=== PATIENT | female | born 1930 | race Caucasian/White ===

== ENCOUNTER 2016-06-26 19:54 | Emergency (ER) | payer OTHER ==
[2016-06-26 20:34] LABS: URINE SOURCE CLEAN CATCH
[2016-06-26 20:39] LABS: UR AMPHETAMINES QUAL NONE DETECTED (NONE DETECT); UR BARBITUATES QUAL NONE DETECTED (NONE DETECT); UR BENZODIAZEPIN QUAL NONE DETECTED (NONE DETECT); UR CANNABINOIDS QUAL NONE DETECTED (NONE DETECT); UR COCAINE QUAL NONE DETECTED (NONE DETECT); UR MDMA QUAL NONE DETECTED (NONE DETECT); UR METHADONE QUAL NONE DETECTED (NONE DETECT); UR METHAMPHETAMINE QUAL NONE DETECTED (NONE DETECT); UR OPIATES QUAL NONE DETECTED (NONE DETECT); UR OXYCODONE QUAL NONE DETECTED (NONE DETECT); UR PCP QUAL NONE DETECTED (NONE DETECT); UR TCA QUAL NONE DETECTED (NONE DETECT)
[2016-06-26 20:47] LABS: BILIRUBIN URINE NEGATIVE (NEGATIVE); BLOOD URINE NEGATIVE (NEGATIVE); CLARITY CLEAR (CLEAR); COLOR YELLOW; GLUCOSE URINE NEGATIVE (NEGATIVE); LEUKOCYTES URINE 2+ (NEGATIVE); NITRITE URINE NEGATIVE (NEGATIVE); PH URINE 6.5; PROTEIN URINE NEGATIVE (NEGATIVE); SP GRAVITY URINE 1.015; UROBILINOGEN URINE NORMAL
[2016-06-26 21:04] LABS: MANUAL DIFF NEEDED? NO
[2016-06-26 21:10] LABS: BASO% 0.1 % (0.0-0.8); EOS# 0.17 X1000 (0.0-0.7); EOS% 2.1 % (0.0-10.0); HEMATOCRIT 43.2 % (37.0-47.0); HEMOGLOBIN 14.2 g/dL (12.0-16.0); IMM GRAN# 0.01 X1000 (0.0-0.04); IMM GRAN% 0.1 % (0.0-0.5); LYMPH# 2.74 X1000 (1.2-3.4); LYMPH% 34.3 % (20.5-51.1); MCH 30.8 PG (27-31); MCHC 32.9 g/dL (33-37); MCV 93.7 FL (81-99); MONO# 0.74 X1000 (0.11-0.59); MONO% 9.3 % (1.7-9.3); MPV 10.5 FL (7.4-10.4); NEUT% 54.1 % (42.2-75.2); PLT 180 X1000 (130-400); RBC 4.61 XMIL (4.2-5.4)
--- NOTE | 2016-06-26 21:11 | ED EKG INTERP ---
EKG Interpretation - EKG Time of EKG reading by physician:: 21:01 EKG Read and Signed by:: Miguel Olmedo EKG Interpretation (*Must complete 3 of following elements*): Abnormal Rate: 55 Rhythm: Sinus kalpesh Comments: otherwise normal ecg Attestation - Scribe Verification/Attestation Scribe:: Sukhwinder Greer Acting as Scribe for:: Miguel Olmedo Scribe documention review:: This chart was documented by a scribe and accurately reflects the service the provider performed and the decisions made by the provider.
[2016-06-26 21:31] LABS: URINE RBC <10 /HPF (<10)
[2016-06-26 21:32] LABS: URINE CULTURE PL NEEDED? YES; URINE EPITHELIAL CELLS <10 /HPF (<10)
[2016-06-26 21:34] LABS: ACETAMINOPHEN < 1.2 ug/mL (10-30); AGAP 10; ALBUMIN 4.1 g/dL (3.5-5.0); ALKALINE PHOSPHATASE 106 U/L (32-104); BUN 28 mg/dL (8-22); CALCIUM 10.1 mg/dL (8.8-10.2); CHLORIDE 101 mmol/L (98-107); COSMO 284; GOT 17 U/L (10-30); GPT 7 U/L (10-36); MAGNESIUM 1.8 mg/dL (1.5-2.7); POTASSIUM 3.9 mmol/L (3.5-5.1); SODIUM 139 mmol/L (136-145); TCO2 28 mmol/L (25-35); TOTAL PROTEIN 7.3 g/dL (6.3-8.3)
--- NOTE | 2016-06-26 22:02 | PROVIDER DOCUMENTATION ---
HPI-General Adult - General Chief Complaint: Psych Stated Complaint: PHYSC ELIAN Time Seen by Provider: 06/26/16 21:37 Source: patient, RN/MD Allergies/Adverse Reactions: Patient Allergies Allergy/AdvReac Type Severity Reaction Status Date / Time No Known Allergies Allergy Verified 06/26/16 20:09 Home Medications: Donepezil [Aricept] 10 mg PO DAILY 06/26/16 Memantine HCl [Namenda] 10 mg PO DAILY 06/26/16 Metoprolol Succinate [Toprol Xl] 06/26/16 PRAVAstatin [Pravachol] 40 mg PO 06/26/16 - History of Present Illness -Gen Adult Nature of Presenting Problems: 86 y/o WF presents to the ED with not feeling well and generalized weakness now for 2 days. Pt says she did feel a little feverish the past two days but has no other complaints other than the lack of energy. Nurse reports pt was seen at [facility] and was accepted but sent her for medical clearance. Location of Pain/Injury: reports: none Pain Radiation: reports: no radiation Quality of Pain: reports: none Severity: reports: mild Timing: reports: still present Review of Systems - Adult - REVIEW OF SYSTEMS - ADULT Constitutional: reports: other (generlized weakness). denies: chills, fever Eyes: reports: no symptoms reported Ears, Nose, Mouth & Throat: reports: no symptoms reported Cardiovascular: reports: no symptoms reported Respiratory: reports: no symptoms reported Gastrointestinal: reports: no symptoms reported Genitourinary: reports: no symptoms reported Musculoskeletal: reports: no symptoms reported Integumentary: reports: no symptoms reported Neurological: reports: no symptoms reported Psychiatric: reports: depression. denies: anxiety, alcohol/drug dependence, suicidal thoughts Endocrine: reports: no symptoms reported Hematologic/Lymphatic: reports: no symptoms reported Allergic/Immunologic: reports: no symptoms reported All Other Systems: Reviewed and Negative Past History - Adult - PAST MEDICAL HISTORY-ADULT Review of Records: reports: Old Records Reviewed, Nursing Assessment Review, Medications Reviewed Physical Exam-General - PHYSICAL EXAM-ADULT Initial Vital Signs Reviewed: Yes - CONSTITUTIONAL General Appearance: appears well, alert, no apparent distress - EYES Eyes: PERRL/EOMI, pink conjunctivae - HEAD, EARS, NOSE, MOUTH & THROAT HENMT: moist mucous membranes, normal ENT inspection, TMs normal, pharynx normal - NECK Neck: non-tender, full range of motion, supple, normal inspection - RESPIRATORY Respiratory: lungs clear, normal breath sounds, no pleuratic chest pain, no respiratory distress, no accessory muscle use - CARDIOVASCULAR Cardiovascular: normal peripheral pulses - GASTROINTESTINAL (ABDOMEN) Abdominal Exam: normal bowel sounds, non tender, soft - MUSCULOSKELETAL Back Exam: normal inspection, no vertebral tenderness, CVA tenderness (mild) Extremity: normal range of motion, non-tender, normal gait, normal inspection - SKIN Integumentary: normal color, normal turgor, warm/dry - NEUROLOGIC Neurologic: grossly normal, no motor/sensory deficits - PSYCHIATRIC Psych/Mental Status: normal mood/affect, normal thought content, normal thought process, oriented x 3 Progress - PLAN OF CARE/RESULTS Progress/Plan/Lab Results: Orders Category Date Time Status CHEST-2 VIEWS [RAD] Stat Exams 06/26/16 21:48 Taken ACETAMINOPHEN [TDM] Stat Lab 06/26/16 21:00 Completed ALCOHOL BLOOD Stat Lab 06/26/16 21:00 Completed CBC WITH DIFF [HEME] Stat Lab 06/26/16 21:00 Completed CK PROFILE [SP CHEM] Stat Lab 06/26/16 21:00 Completed COMPREHENSIVE METABOLIC PANEL [CHEM] Stat Lab 06/26/16 21:00 Completed FOLATE Stat Lab 06/26/16 Received FREE T4 Stat Lab 06/26/16 Completed MAGNESIUM [CHEM] Stat Lab 06/26/16 21:00 Completed RPR [SERO] Stat Lab 06/26/16 Received SALICYLATES [TDM] Stat Lab 06/26/16 21:00 Completed TROPONIN T Stat Lab 06/26/16 21:00 Completed TSH Stat Lab 06/26/[address] W/POSS RFLX CULT [URINALYSIS] Stat Lab 06/26/[address] W/POSS RFLX CULT [URINALYSIS] Stat Lab 06/26/16 Completed URINE CULTURE [RM] Routine Lab 06/26/16 21:32 Received URINE CULTURE [RM] Routine Lab 06/26/16 22:32 Ordered URINE DRUG SCREEN [address] Stat Lab 06/26/16 Completed VITAMIN B12 Stat Lab 06/26/16 21:00 Received EKG [EKG] Stat Ther 06/26/16 20:26 Ordered Vital Signs Temp Pulse Resp Pulse Ox 06/26/16 20:04 98 F 64 18 98 No Known Allergies Allergy (Verified 06/26/16 20:09) Donepezil [Aricept] 10 mg PO DAILY 06/26/16 Memantine HCl [Namenda] 10 mg PO DAILY 06/26/16 Metoprolol Succinate [Toprol Xl] 06/26/16 PRAVAstatin [Pravachol] 40 mg PO 06/26/16 Laboratory 06/26/16 06/26/16 06/26/16 Unknown Unknown Unknown WBC RBC Hgb Hct MCV MCH MCHC RDW Std Deviation Plt Count MPV Immature Gran % (Auto) Neut % (Auto) Lymph % (Auto) [place] % (Auto) Eos % (Auto) Baso % (Auto) Immature Gran # (Auto) Neut # (Auto) Lymph # (Auto) [place] # (Auto) Eos # (Auto) Baso # (Auto) Sodium Potassium Chloride Carbon Dioxide Anion Gap BUN Creatinine Estimated GFR/1.73 m2 BUN/Creatinine Ratio Glucose Calculated Osmolality Calcium Magnesium Total Bilirubin AST ALT Alkaline Phosphatase Creatine Kinase Troponin T Total Protein Albumin Globulin Albumin/Globulin Ratio TSH 1.11 Free T4 1.11 Urine Source CLEAN CATCH CLEAN CATCH Urine Color YELLOW YELLOW Urine Clarity CLEAR CLEAR Urine pH 7.0 6.5 Ur Specific [place] 1.010 1.015 Urine Protein NEGATIVE NEGATIVE Urine Ketones NEGATIVE NEGATIVE Urine Blood NEGATIVE NEGATIVE Urine Nitrite NEGATIVE NEGATIVE Urine Bilirubin NEGATIVE NEGATIVE Urine Urobilinogen NORMAL NORMAL Urine Microscopic RBC <10 <10 Urine WBC 2+ A 2+ A Urine Microscopic WBC 10-20 A 10-20 A Ur Epithelial Cells <10 <10 Urine Bacteria NEGATIVE 1+ Urine Glucose NEGATIVE NEGATIVE Salicylates Urine Opiates Screen Ur Oxycodone Screen Urine Methadone Screen Acetaminophen Ur Barbituates Screen Ur Tricyclics Screen Ur Phencyclidine Scrn Ur Amphetamines Screen U Methamphetamines Scrn Urine MDMA Screen U Benzodiazepines Scrn Urine Cocaine Screen U Cannabinoids Screen Plasma/Serum Ethyl Alc 06/26/16 06/26/16 06/26/16 Unknown 21:00 21:00 WBC RBC Hgb Hct MCV MCH MCHC RDW Std Deviation Plt Count MPV Immature Gran % (Auto) Neut % (Auto) Lymph % (Auto) [place] % (Auto) Eos % (Auto) Baso % (Auto) Immature Gran # (Auto) Neut # (Auto) Lymph # (Auto) [place] # (Auto) Eos # (Auto) Baso # (Auto) Sodium Potassium Chloride Carbon Dioxide Anion Gap BUN Creatinine Estimated GFR/1.73 m2 BUN/Creatinine Ratio Glucose Calculated Osmolality Calcium Magnesium Total Bilirubin AST ALT Alkaline Phosphatase Creatine Kinase 72 Troponin T < 0.010 Total Protein Albumin Globulin Albumin/Globulin Ratio TSH Free T4 Urine Source Urine Color Urine Clarity Urine pH Ur Specific [place] Urine Protein Urine Ketones Urine Blood Urine Nitrite Urine Bilirubin Urine Urobilinogen Urine Microscopic RBC Urine WBC Urine Microscopic WBC Ur Epithelial Cells Urine Bacteria Urine Glucose Salicylates Urine Opiates Screen NONE DETECTED Ur Oxycodone Screen NONE DETECTED Urine Methadone Screen NONE DETECTED Acetaminophen Ur Barbituates Screen NONE DETECTED Ur Tricyclics Screen NONE DETECTED Ur Phencyclidine Scrn NONE DETECTED Ur Amphetamines Screen NONE DETECTED U Methamphetamines Scrn NONE DETECTED Urine MDMA Screen NONE DETECTED U Benzodiazepines Scrn NONE DETECTED Urine Cocaine Screen NONE DETECTED U Cannabinoids Screen NONE DETECTED Plasma/Serum Ethyl Alc 06/26/16 06/26/16 06/26/16 21:00 21:00 21:00 WBC 8.00 RBC 4.61 Hgb 14.2 Hct 43.2 MCV 93.7 MCH 30.8 MCHC 32.9 L RDW Std Deviation 11.9 Plt Count 180 MPV 10.5 H Immature Gran % (Auto) 0.1 Neut % (Auto) 54.1 Lymph % (Auto) 34.3 [place] % (Auto) 9.3 Eos % (Auto) 2.1 Baso % (Auto) 0.1 Immature Gran # (Auto) 0.01 Neut # (Auto) 4.33 Lymph # (Auto) 2.74 [place] # (Auto) 0.74 H Eos # (Auto) 0.17 Baso # (Auto) 0.01 Sodium 139 Potassium 3.9 Chloride 101 Carbon Dioxide 28 Anion Gap 10 BUN 28 H Creatinine 1.1 H Estimated GFR/1.73 m2 47 BUN/Creatinine Ratio 25 Glucose 112 H Calculated Osmolality 284 Calcium 10.1 Magnesium 1.8 Total Bilirubin 0.50 AST 17 ALT 7 L Alkaline Phosphatase 106 H Creatine Kinase Troponin T Total Protein 7.3 Albumin 4.1 Globulin 3.0 Albumin/Globulin Ratio 1.0 TSH Free T4 Urine Source Urine Color Urine Clarity Urine pH Ur Specific [place] Urine Protein Urine Ketones Urine Blood Urine Nitrite Urine Bilirubin Urine Urobilinogen Urine Microscopic RBC Urine WBC Urine Microscopic WBC Ur Epithelial Cells Urine Bacteria Urine Glucose Salicylates < 3.00 L Urine Opiates Screen Ur Oxycodone Screen Urine Methadone Screen Acetaminophen < 1.2 L Ur Barbituates Screen Ur Tricyclics Screen Ur Phencyclidine Scrn Ur Amphetamines Screen U Methamphetamines Scrn Urine MDMA Screen U Benzodiazepines Scrn Urine Cocaine Screen U Cannabinoids Screen Plasma/Serum Ethyl Alc - PSYCHIATRIC Medically clear for psych eval and/or transfer to [facility].: Yes - XRAY 1 XRAY Study: Chest Impression: Normal XRAY Interpretation: elevated right diaphram. possible hital hernia, no acute lung disease Departure - Departure Time of Disposition Order: 21:55 DIAGNOSIS: Depressed affect Disposition: [facility]ATRIC [facility] [address] Certified Medical Emergency: Emergent Condition: Stable Prescriptions: Sulfamethoxazole/Trimethoprim [Bactrim Ds Tablet] 1 each PO BID #12 tablet Referrals: None,PCP [Primary Care Provider] - Attestation - Scribe Verification/Attestation Scribe:: Sukhwinder Greer Acting as Scribe for:: Miguel Olmedo Scribe documention review:: This chart was documented by a scribe and accurately reflects the service the provider performed and the decisions made by the provider.
[2016-06-26 22:11] LABS: URINE SOURCE CLEAN CATCH
[2016-06-26 22:30] LABS: BILIRUBIN URINE NEGATIVE (NEGATIVE); BLOOD URINE NEGATIVE (NEGATIVE); CLARITY CLEAR (CLEAR); COLOR YELLOW; GLUCOSE URINE NEGATIVE (NEGATIVE); LEUKOCYTES URINE 2+ (NEGATIVE); NITRITE URINE NEGATIVE (NEGATIVE); PROTEIN URINE NEGATIVE (NEGATIVE); UROBILINOGEN URINE NORMAL
[2016-06-26 22:32] LABS: URINE CULTURE PL NEEDED? YES; URINE EPITHELIAL CELLS <10 /HPF (<10); URINE RBC <10 /HPF (<10)
[2016-06-26 22:47] LABS: FREE T4 1.11 ng/dL (0.93-1.70)
[2016-06-26] MEDS ORDERED: SEPTRA DS PO ONE (23:13)
--- NOTE | 2016-06-27 05:23 | EKG Report ---
Test Performed on : 06/26/2016 9:01:33 PM Test Reason : med clearance psych Blood Pressure : / mmHG Vent. Rate : 059 BPM Atrial Rate : 059 BPM P-R Int : 168 ms QRS Dur : 080 ms QT Int : 418 ms P-R-T Axes : 039 019 025 degrees QTc Int : 413 ms Sinus bradycardia. Otherwise normal ECG No previous ECGs available Unconfirmed Result
--- NOTE | 2016-06-27 11:35 | Diag Imaging Result Document ---
PROCEDURE NAME: CHEST-2 VIEWS - 06/26/2016 CHEST TWO VIEWS: INDICATION: Cough. COMPARISON: No comparison studies. FINDINGS: The cardiomediastinal silhouette is within normal limits. There is probably a moderate hiatal hernia. There are prominent interstitial markings suspicious for fibrosis. No focal consolidation is identified. There is biapical pleural thickening. There is pulmonary emphysema. There is a mild compression deformity mid thoracic spine. IMPRESSION: Suspect pulmonary emphysema and mild parenchymal fibrosis. Probable moderate hiatal hernia.
== END 2016-06-26 23:52 ==
LOC: P.ED 19:54
DX: F32.9 Major depressive disorder, single episode, unspecified (principal); R53.1 Weakness; Z79.899 Other long term (current) drug therapy; R94.31 Abnormal electrocardiogram [ECG] [EKG]
CPT/HCPCS: 71020; 80053; 81001; 82550; 82607; 82746; 83735; 84439; 84443; 84484; 85025; 86592; 87088; 93005; 99285; G0480